=== PATIENT | female | born 1950 | race Caucasian/White ===

== ENCOUNTER 2024-11-06 15:45 | Outpatient (RCR) | payer MEDICARE, SELFPAY | END 2024-11-07 08:38 | disposition home or self-care (01) | PROVIDERS: Visit Provider Family Medicine | DX: M25.562 Pain in left knee (principal); G89.29 Other chronic pain; M62.81 Muscle weakness (generalized); Z74.09 Other reduced mobility; Z51.89 Encounter for other specified aftercare | CPT/HCPCS: 97110; 97112; 97161; 97530 ==